=== PATIENT | female | born 2000 | race American Indian/Alaskan Native ===

== ENCOUNTER 2020-01-13 08:37 | Emergency (ER) | payer MEDICAID ==
[2020-01-13] MEDS ORDERED: ONDANSETRON 4 MG/2 ML INJ IV ONE (11:00)
[2020-01-13] MEDS ORDERED: SODIUM CHLORIDE 0.9% 500 ML 500 ML IV ONE (11:00)
[2020-01-13] MEDS ORDERED: fentaNYL 100 MCG/2 ML INJ IV ONE (11:02)
--- NOTE | 2020-01-13 11:09 | Emergency Department Report ---
ED General Adult HPI - General Chief complaint: Abdominal Pain Stated complaint: POSS MISCARRIAGE PUI?: No Time Seen by Provider: 01/13/20 10:09 Source: patient, EMS ( EMS documentation not available at time of chart dict ation ), RN notes reviewed Mode of arrival: Stretcher Limitations: No Limitations - History of Present Illness Initial comments: The patient was evaluated in the emergency department for symptoms described in the history of present illness. He/she was evaluated in the context of the global COVID-19 pandemic, which necessitated consideration that the patient might be at risk for infection with the virus that causes COVID-19. Institutional protocols and algorithms that pertain to the evaluation of patien ts at risk for COVID-19 are in a state of rapid change based on information released by regulatory bodies including the CDC and federal and state organizations. These policies and algorithms were followed during the patient's care in the emergency department. Please note that these policies, procedures and recommendations changed on a rapid basis. During the history and physical examination, I am chaperoned by nurse Andreia Fatima. Patient is a 19-year-old female. She is 2, para 0, status post elective termination of in the distant past. The patient reports that she is 19 weeks . She reports that she follows with local compensation advisor in [place]. She reports that she has had unremarkable outpatient care. She presents to the ER today with a complaint of "I had a miscarriage." Patient endorses intermittent spotting throughout the duration of her . She reports spotting increased over the past 3 days. To the best of her knowledge, she did not have an abnormal placenta. She reports left lower quadrant and suprapubic abdominal pain which started yesterday, culminating in expulsion of contents this morning, at about 8:00. At the moment, she denies headache, neck pain, chest pain. She has mild abdominal cramping. She has no dysuria. She was nauseous, but she is not currently nauseous now. -: Gradual, days(s) Location: abdomen Quality: aching Consistency: constant Improves with: rest Worsens with: movement - Related Data Allergies Allergy/AdvReac Type Severity Reaction Status Date / Time No Known Allergies Allergy Unverified 01/13/20 09:20 ED Review of Systems ROS: Stated complaint: POSS MISCARRIAGE Other details as noted in HPI Constitutional: denies: fever Eyes: denies: eye discharge ENT: denies: epistaxis Respiratory: denies: cough Cardiovascular: denies: chest pain Gastrointestinal: abdominal pain, nausea Genitourinary: denies: dysuria Musculoskeletal: denies: back pain Neurological: headache Psychiatric: anxiety Hematological/Lymphatic: denies: easy bleeding ED Past Medical Hx - Past Medical History Previous Medical History?: No - Surgical History Past Surgical History?: No - Social History Smoking Status: Never Smoker Substance Use Type: None ED Physical Exam - General Limitations: No Limitations General appearance: alert, in no apparent distress - Head Head exam: Present: atraumatic, normocephalic - Eye Eye exam: Present: normal appearance, EOMI. Absent: nystagmus - ENT ENT exam: Present: normal exam, normal orophraynx, mucous membranes moist, normal external ear exam - Neck Neck exam: Present: normal inspection, full ROM. Absent: tenderness, meningismus - Respiratory Respiratory exam: Present: normal lung sounds bilaterally. Absent: respiratory distress, wheezes, rales, rhonchi, stridor, decreased breath sounds - Cardiovascular Cardiovascular Exam: Present: normal rhythm, tachycardia, normal heart sounds. Absent: systolic murmur, diastolic murmur, rubs, gallop - GI/Abdominal GI/Abdominal exam: Present: soft, normal bowel sounds. Absent: distended, tenderness, guarding, rebound, rigid, pulsatile mass - External exam: Present: normal external exam, bleeding, other (Chaperoned by nurse Liam Henao). Absent: erythema, swelling, lesions, lacerations, ecchymosis Speculum exam: Present: vaginal bleeding - Extremities Exam Extremities exam: Present: normal inspection, full ROM, other (2+ pulses noted in the bilateral upper and lower extremities. There is no palpable cord. negative Homans sign. Muscular compartments are soft. The pelvis is stable.). Absent: pedal edema, calf tenderness - Back Exam Back exam: Present: normal inspection, full ROM. Absent: tenderness, CVA t enderness (R), CVA tenderness (L), paraspinal tenderness, vertebral tenderness - Neurological Exam Neurological exam: Present: alert, other (No facial droop. Tongue midline. Extraocular movements intact bilaterally. Facial sensation intact to light touch in V1, V2, V3 distribution bilaterally. 5 and a 5 strength in 4 extremities. Sensation intact to light touch in 4 extremities.) - Psychiatric Psychiatric exam: Present: anxious - Skin Skin exam: Present: warm, dry, intact, normal color. Absent: rash ED Course Vital Signs 01/13/20 01/13/20 01/13/20 09:00 09:04 09:16 Temperature 98.6 F Pulse Rate 107 H Respiratory 16 Rate Blood Pressure 120/68 120/68 120/68 Blood Pressure [Right] O2 Sat by Pulse 100 100 100 Oximetry 01/13/20 01/13/20 01/13/20 09:20 09:30 09:46 Temperature Pulse Rate Respiratory 16 Rate Blood Pressure 112/68 115/59 Blood Pressure [Right] O2 Sat by Pulse 100 99 99 Oximetry 01/13/20 01/13/20 01/13/20 10:00 10:16 10:30 Temperature Pulse Rate Respiratory Rate Blood Pressure 112/67 110/65 111/63 Blood Pressure [Right] O2 Sat by Pulse 100 100 100 Oximetry 01/13/20 01/13/20 01/13/20 10:46 11:00 12:00 Temperature Pulse Rate Respiratory Rate Blood Pressure 102/60 115/65 108/52 Blood Pressure [Right] O2 Sat by Pulse 100 100 99 Oximetry 01/13/20 12:35 Temperature Pulse Rate 88 Respiratory 16 Rate Blood Pressure Blood Pressure 110/65 [Right] O2 Sat by Pulse 100 Oximetry - Reevaluation(s) Reevaluation #1: 01/13/20 11:12 Differential diagnosis, including but not limited to: Miscarriage, retained products of conception, placenta previa Assessment and plan: 19-year-old female who reports that she is approximately 19 weeks , and also reports that she had a miscarriage, reporting vaginal spotting and delivery of products. She is afebrile with reassuring vital signs. Tachycardia likely physiologic secondary to her , and anxiety. We will treat symptoms, pain, obtain appropriate laboratory studies, and obtain ultrasound 01/13/20 12:44 Reassessed. Ultrasound shows no intrauterine , or retained products of conception. Tachycardia resolved. Minimal vaginal bleeding is noted. Patient denies urinary symptoms. She states that she has follow-up with her chuck wagon cook in 2 days. Discharge with bed rest, pelvic rest, avoidance of heavy lifting, bleeding precautions, instructions to follow-up in 2 days as planned. ED Medical Decision Making - Lab Data Result diagrams: 01/13/20 11:24 01/13/20 11:24 Vital Signs 01/13/20 01/13/20 09:00 09:20 Temperature 98.6 F Pulse Rate 107 H Respiratory 16 16 Rate Blood Pressure 120/68 O2 Sat by Pulse 100 100 Oximetry Vital Signs 01/13/20 01/13/20 09:00 09:20 Temperature 98.6 F Pulse Rate 107 H Respiratory 16 16 Rate Blood Pressure 120/68 O2 Sat by Pulse 100 100 Oximetry - Radiology Data Radiology results: report reviewed, image reviewed Print Report Referring Physician: KENNY STEWART Patient Name: SINGH BASS Date of : 2000 Sex: Female Report Date: 2020-01-13 Report Status: [place] [address] Ultrasound Report Signed Patient: SINGH BASS MR#: [id number] : 2000 Acct:[id number] Age/Sex: 19 / F ADM Date: 01/13/20 Loc: ED Attending Dr: Ordering Physician: KENNY STEWART MD Date of Service: 01/13/20 Procedure(s): US OB <= 14 weeks fetus Accession Number(s): [id number] cc: KENNY STEWART MD OB <= 14 weeks fetus INDICATION / CLINICAL INFORMATION: pelvic pain miscarriage. TECHNIQUE: Transabdominal. COMPARISON: None available. FINDINGS: UTERUS: Appears within normal limits. GESTATIONAL SAC: None ADNEXA: Ovaries appear within normal limits. FREE FLUID: None. ADDITIONAL FINDINGS: None. IMPRESSION: No intrauterine is seen consistent with miscarriage. No retained products of conception. Signer Name: Selvin Yepez MD Signed: 01/13/2020 11:51 AM Workstation Name: [id number] Transcribed By: CS Dictated By: Selvin Yepez MD Electronically Authenticated By: Selvin Yepez MD Signed Date/Time: 01/13/20 1151 DD/ 1151 TD/TT: Critical care attestation.: If time is entered above; I have spent that time in minutes in the direct care of this critically ill patient, excluding procedure time. ED Disposition Clinical Impression: Miscarriage Disposition: DC-01 TO HOME OR SELFCARE Is pt being admited?: No Does the pt Need Aspirin: No Condition: Stable Instructions: Abdominal Pain (ED), Miscarriage, [id number], Managing Pre gnancy Loss Additional Instructions: Recommend that patient rest, avoid heavy lifting and strenuous physical activity. Patient should participate in bed rest, pelvic rest, and avoid sexual activity. Please follow-up with an compensation advisor within the next 2 days. Please return to the emergency room right away with new pain, worsened pain, migration of pain, projectile vomiting, change in mental status, confusion, bleeding more than 2 pads soaked per hour, lightheadedness, dizziness, chest pain, shortness of breath, loss of consciousness. Patient may take over-the-co unter acetaminophen, 650 mg by mouth, with food, every 4-6 hours as needed for pain. Referrals: [facility] [Provider Group] - 3-5 Days [facility] [Provider Group] - 3-5 Days [facility] [Provider Group] - 3-5 Days Forms: Work/School Release Form(ED)
[2020-01-13 11:34] LABS: Hematocrit 31.3 % (30.3-42.9); Hemoglobin 10.7 gm/dl (10.1-14.3)
[2020-01-13 11:44] LABS: INR 1.25 (0.87-1.13)
[2020-01-13 11:53] LABS: Alanine Aminotransferase 13 units/L (7-56); Albumin 3.3 g/dL (3.9-5); Blood Urea Nitrogen 6 mg/dL (7-17); Calcium 8.8 mg/dL (8.4-10.2); Hemolysis Index 0
--- NOTE | 2020-01-13 11:56 | Ultrasound Report ---
US OB <= 14 weeks fetus INDICATION / CLINICAL INFORMATION: pelvic pain miscarriage. TECHNIQUE: Transabdominal. COMPARISON: None available. FINDINGS: UTERUS: Appears within normal limits. GESTATIONAL SAC: None ADNEXA: Ovaries appear within normal limits. FREE FLUID: None. ADDITIONAL FINDINGS: None. IMPRESSION: No intrauterine is seen consistent with miscarriage. No retained products of conception. Signer Name: Selvin Yepez MD Signed: 01/13/2020 11:51 AM Workstation Name: [id number]
[2020-01-13 12:13] LABS: BUN/Creatinine Ratio 15
[2020-01-13 18:37] VITALS: BP 112/72
== END 2020-01-13 16:00 | disposition home or self-care (01) ==
LOC: ED 08:37
DX: O20.0 Threatened abortion (principal)
CPT/HCPCS: 36415; 76801; 80053; 84702; 85014; 85018; 85049; 85610; 86850; 86900; 86901; 99284; J2405; J3010; J7040